=== PATIENT | male | born 1945 | race African-American/Black ===

== ENCOUNTER 2021-12-31 05:55 | Emergency (ER) | payer OTHER ==
[~2021-12-31] VITALS: Ht 177.8 cm; Wt 81.6 kg
[2021-12-31] MEDS ORDERED: CLOP75TA60 PO (05:59)
[2021-12-31 06:09] LABS: BASOPHILS % (AUTO) 1.1 % (0.0-2.0); EOSINOPHILS % (AUTO) 3.3 % (1.0-6.0); HEMATOCRIT 42.4 % (41-53); HEMOGLOBIN 14.2 g/dL (13.5-17.5); LYMPHOCYTES # (AUTO) 2.2 K/uL (1.0-4.8); LYMPHOCYTES % (AUTO) 49.3 % (22.0-44.0); MEAN CORPUSCULAR HEMOGLOBIN 29.5 pg (26.0-34.0); MEAN CORPUSCULAR HGB CONC 33.4 G/dL (31.0-37.0); MEAN CORPUSCULAR VOLUME 88 fL (80-100); MONOCYTES # (AUTO) 0.4 K/uL (0.1-1.0); NEUTROPHILS # (AUTO) 1.6 K/uL (1.8-7.7); NEUTROPHILS % (AUTO) 37.3 % (40.0-70.0); PLATELET COUNT (AUTO) 188 K/uL (150-450); RED BLOOD CELL COUNT(AUTO) 4.81 MIL/uL (4.50-5.90); RED CELL DISTRIBUTION WIDTH 13.2 % (11.5-14.5)
[2021-12-31] MEDS ORDERED: IOHEXOL 350 MG/ML 150 ML VIAL ONE (06:16)
[2021-12-31] MEDS ORDERED: SODIUM CHLORIDE 0.9% 100 ML ONE (06:16)
[2021-12-31 06:17] LABS: CREATININE 1.45 mg/dL (0.60-1.30); POTASSIUM 3.8 mmol/L (3.5-5.1)
[2021-12-31 06:23] LABS: BILIRUBIN,TOTAL 0.7 mg/dL (0.1-1.0); TOTAL PROTEIN, SERUM 8.2 g/dL (6.4-8.2)
[2021-12-31 06:25] LABS: INR 1.1 (0.9-1.1); PROTHROMBIN TIME 11.4 SEC (9.4-11.6)
[2021-12-31] MEDS ORDERED: NiCARDipine HCL 25 MG in DEXTROSE 5%-WATER 240 ML IV PRN (06:45)
[2021-12-31 07:26] LABS: COVID AG,FIA SOURCE NASOPHARYNGEAL
[2021-12-31] MEDS ORDERED: ALLO-97 PO (07:38)
[2021-12-31] MEDS ORDERED: ATOR40TA28 PO (07:39)
[2021-12-31] MEDS ORDERED: LISI-658 PO (07:39)
[2021-12-31 08:47] VITALS: BP 137/75
== END 2021-12-31 10:52 | disposition short-term general hospital (02) ==
LOC: EMS 05:56
DX: I63.9 Cerebral infarction, unspecified (principal); I10 Essential (primary) hypertension; Z86.79 Personal history of other diseases of the circulatory system; Z20.822 Contact with and (suspected) exposure to COVID-19
CPT/HCPCS: 36415; 51702; 70450; 70496; 70498; 71045; 80053; 82962; 84484; 85025; 85610; 85730; 86850; 86900; 86901; 87426; 93005; 96365; 99291; J3490; J7050; J7060; Q9967; 29515